=== PATIENT | male | born 1995 | race African-American/Black ===

== ENCOUNTER 2017-03-16 20:04 | Emergency (ER) | payer SELFPAY ==
[~2017-03-16] VITALS: Ht 180.3 cm; Wt 61.2 kg
[2017-03-16 20:39] VITALS: BP 134/87
[2017-03-16] MEDS ORDERED: LIDOCAINE 2%/EPI 1:100,000 20 ML VIAL. IJ ONE (21:00)
[2017-03-16] MEDS ORDERED: ACETAMINOPHEN/CODEINE 300/30MG TABLET. PO ONE (21:00)
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
== END 2017-03-16 22:07 | disposition home or self-care (01) ==
LOC: EEVIPCON 20:04 → ER 21:03
DX: S51.812A Laceration without foreign body of left forearm, initial encounter (principal); G83.9 Paralytic syndrome, unspecified; W26.0XXA Contact with knife, initial encounter; Y93.89 Activity, other specified; Y92.89 Other specified places as the place of occurrence of the external cause; Y99.8 Other external cause status
CPT/HCPCS: 12001; 99283; J3490